=== PATIENT | male | born 1995 | race Caucasian/White ===

== ENCOUNTER 2023-12-12 05:44 | Emergency (ER) | payer SELFPAY ==
[~2023-12-12] VITALS: Ht 182.9 cm; Wt 78.0 kg
[2023-12-12 05:52] VITALS: BP_SYST 143; PULSE 97; RESP 16; TEMP 98.4; O2SAT 98
[2023-12-12] MEDS: LIDOCAINE 1% 10 MG/ML, 20 ML MDV INJ ONE (06:28)
[2023-12-12] MEDS: DIPHTH,PERTUSS(ACELL),TET VAC 0.5 ML VIAL (Tdap) I.M. ONE (06:29)
[2023-12-12] MEDS ORDERED: LIDOCAINE 1%, 20 ML MDV 20 ML ONE (06:30)
[2023-12-12 06:45] VITALS: BP_SYST 154; PULSE 95; RESP 20; TEMP 97.4; O2SAT 97
[2023-12-12] MEDS ORDERED: BACITRACIN 1 GM OINT TP ONE (06:45)
[2023-12-12] MEDS: BACITRACIN 1 GM OINT TP ONE (06:48)
== END 2023-12-12 06:45 | disposition home or self-care (01) ==
LOC: SED 05:44
DX: S01.111A Laceration without foreign body of right eyelid and periocular area, initial encounter (principal); Z79.899 Other long term (current) drug therapy; W22.09XA Striking against other stationary object, initial encounter; Y93.89 Activity, other specified; Y92.89 Other specified places as the place of occurrence of the external cause; Y99.8 Other external cause status
CPT/HCPCS: 90715; 99283; J2001

== ENCOUNTER 2023-12-16 14:36 | Emergency (ER) | payer SELFPAY ==
[~2023-12-16] VITALS: Ht 175.3 cm; Wt 65.8 kg
[2023-12-16 14:40] VITALS: BP_SYST 124; PULSE 74; RESP 18; TEMP 97.8; O2SAT 98
== END 2023-12-16 16:35 | disposition home or self-care (01) ==
LOC: SED 14:36
DX: Z48.02 Encounter for removal of sutures (principal)
CPT/HCPCS: 99281